=== PATIENT | male | born 1940 | race Caucasian/White ===

== ENCOUNTER 2017-12-25 12:44 | Outpatient (CLI) | payer MEDICARE ==
--- NOTE | 2017-12-25 15:29 | MRI ---
MRI CERVICAL SPINE WITHOUT CONTRAST: Multiplanar, multisequential imaging of cervical spine obtained. HISTORY: Spondylosis with myelopathy. Cervicalgia. FINDINGS: Cervical vertebrae maintain height and alignment. Mild to moderate degenerative changes are noted. There is loss of disk space at C5-6 and C6-7. Anterior osteophytes are prominent at C5-6 and C6-7. At C2-3, no significant abnormality. At C3-4, posterior spondylosis effaces the anterior subarachnoid space. Prominent facet hypertrophy on the left at this level produces left foraminal stenosis. At C4-5, posterior disk bulge with spondylosis efface the anterior subarachnoid space. Facet and unc inate hypertrophy produce bilateral foraminal stenosis, more pronounced on the left due to very promi nent left facet hypertrophy. At C5-6, disk bulge and spondylosis efface the anterior subarachnoid space and abut the cord. There is right foraminal stenosis. Mild left foraminal narrowing. At C6-7, spondylosis effaces the anterior subarachnoid space and abuts the cord. Mild foraminal narr owing due to facet and uncinate hypertrophy on both sides. Cord signal is normal. IMPRESSION: There are cervical spine degenerative changes described. No disk protrusion; however, there are post erior spondylitic changes abutting the cord at C4-5, C5-6, and C6-7 as described above. Foraminal st enosis at several levels as detailed above. POS: [facility]
--- NOTE | 2017-12-25 15:58 | MRI ---
MRI THORACIC SPINE WITHOUT CONTRAST: HISTORY: The patient has shaking episodes. Intervertebral disk displacement. COMPARISON: None. TECHNIQUE: Thoracic spine MRI is performed without intravenous administration. Multisequential, multiplanar ana ging is performed. FINDINGS: Appropriate T1 marrow signal intensity. Vertebral body height is maintained. No fracture. No signi ficant STIR hyperintensity to suggest edema or ligamentous injury. There is appropriate signal intensity in the visualized mediastinum, lung parenchyma, and solid organ s. Thoracic cord has an overall normal size and signal intensity. Conus medullaris terminates at the in ferior aspect of T12. No significant central canal stenosis or significant foraminal narrowing throu ghout the thoracic spine. IMPRESSION: Unremarkable MRI thoracic spine. No significant stenosis. POS: [facility]
== END 2017-12-25 12:45 | disposition home or self-care (01) ==
LOC: TBSIIMAG 12:44
PROVIDERS: ATTEND Neurological Surgery
DX: M51.24 Other intervertebral disc displacement, thoracic region (principal); M47.12 Other spondylosis with myelopathy, cervical region; M99.71 Connective tissue and disc stenosis of intervertebral foramina of cervical region
CPT/HCPCS: 72141; 72146

== ENCOUNTER 2018-05-15 13:45 | Emergency (ER) | payer MEDICARE ==
[2018-05-15 14:16] LABS: #Basophils 0.1 thou/uL (0.0-0.2); #Eosinphils 0.1 thou/uL (0.0-0.7); #Lymphocytes 2.4 thou/uL (1.20-3.40); #Monocytes 0.7 thou/uL (0.11-0.59); #Neutrophils 4.8 thou/uL (1.40-6.50); %Eosinophils 1.2 % (0.0-10.0); %Lymphocytes 30.2 % (21.0-51.0); %Monocytes 8.3 % (0.0-10.0); %Neutrophils 59.2 % (42.0-75.0); Hemoglobin 15.7 g/dL (14.0-18.0); Mean Corpuscular HGB CONC 35.1 g/dL (32.0-36.0); Mean Platelet Volume 8.2 fL (7.4-10.4); Platelet Count 155 thou/uL (130-400); Red Blood Cell (RBC) Count 4.76 mill/uL (4.70-6.10); White Blood Cell (WBC) Count 8.1 thou/uL (4.8-10.8)
--- NOTE | 2018-05-15 14:31 | RAD ---
CHEST ONE VIEW: History: 77-year-old male with history of palpitations. Comparison: None. FINDINGS: Post underlying sternotomy. Numerous surgical clips overlie the left chest medially. Heart size is wi thin normal limits. The lungs are clear. No pneumonia, edema, or pleural effusion. IMPRESSION: No acute intrathoracic disease. POS: OFF
[2018-05-15 14:39] LABS: ALT (SGPT) 18 U/L (8-55); AST (SGOT) 17 U/L (5-34); Albumin 4.4 g/dL (3.4-4.8); Alkaline Phosphatase 49 U/L (40-150); Anion Gap 14 mmol/L (10-20); BUN (Urea Nitrogen) 15 mg/dL (8.4-25.7); Bilirubin, Total 0.9 mg/dL (0.2-1.2); CK (CPK) 58 U/L (30-200); Calc. Creatinine Clearance 0 mL/min (70-130); Calcium 9.5 mg/dL (7.8-10.44); Carbon Dioxide 22 mmol/L (23-31); Chloride 108 mmol/L (98-107); Estimated GFR-MDRD 68; Globulin 2.7 g/dL (2.4-3.5); Glucose 107 mg/dL (83-110); Potassium 4.6 mmol/L (3.5-5.1); Protein, Total 7.1 g/dL (5.8-8.1); Sodium 139 mmol/L (136-145)
[2018-05-15 14:43] LABS: CKMB 0.9 ng/mL (0-6.6); Troponin I Less than 0.010 ng/mL (< 0.028)
== END 2018-05-15 19:25 | disposition home or self-care (01) ==
LOC: ERS 13:45
DX: R00.2 Palpitations (principal); Z79.82 Long term (current) use of aspirin
CPT/HCPCS: 36415; 71045; 80053; 82553; 83880; 84484; 85025; 93005

== ENCOUNTER 2018-06-26 14:01 | Outpatient (CLI) | payer MEDICARE ==
[2018-06-26 14:27] LABS: #Basophils 0.1 thou/uL (0.0-0.2); #Eosinphils 0.1 thou/uL (0.0-0.7); #Lymphocytes 2.5 thou/uL (1.20-3.40); #Monocytes 0.9 thou/uL (0.11-0.59); #Neutrophils 4.1 thou/uL (1.40-6.50); %Basophils 0.8 % (0.0-1.0); %Eosinophils 1.6 % (0.0-10.0); %Lymphocytes 32.5 % (21.0-51.0); %Monocytes 11.2 % (0.0-10.0); %Neutrophils 53.9 % (42.0-75.0); Hemoglobin 15.1 g/dL (14.0-18.0); Mean Corpuscular HGB CONC 34.9 g/dL (32.0-36.0); Mean Corpuscular Hemoglobin 33.3 pg (27.0-31.0); Mean Corpuscular Volume 95.2 fL (78.0-98.0); Mean Platelet Volume 8.8 fL (7.4-10.4); Platelet Count 165 thou/uL (130-400); RBC Distribution Width 13.2 % (11.5-14.5); Red Blood Cell (RBC) Count 4.53 mill/uL (4.70-6.10); White Blood Cell (WBC) Count 7.7 thou/uL (4.8-10.8)
[2018-06-26 14:33] LABS: INR-International Normal Ratio 1.1; PTT 26.5 SEC (22.9-36.1); Prothrombin Time 13.9 SEC (12.0-14.7)
[2018-06-26 14:52] LABS: ALT (SGPT) 21 U/L (8-55); AST (SGOT) 19 U/L (5-34); Albumin 4.4 g/dL (3.4-4.8); Alkaline Phosphatase 47 U/L (40-150); Anion Gap 13 mmol/L (10-20); BUN (Urea Nitrogen) 20 mg/dL (8.4-25.7); Bilirubin, Total 0.5 mg/dL (0.2-1.2); Calc. Creatinine Clearance 0 mL/min (70-130); Calcium 9.2 mg/dL (7.8-10.44); Carbon Dioxide 24 mmol/L (23-31); Chloride 108 mmol/L (98-107); Estimated GFR-MDRD 68; Globulin 2.9 g/dL (2.4-3.5); Glucose 104 mg/dL (83-110); Potassium 4.6 mmol/L (3.5-5.1); Protein, Total 7.3 g/dL (5.8-8.1); Sodium 140 mmol/L (136-145)
== END 2018-06-26 14:02 | disposition home or self-care (01) ==
LOC: LABBT 14:01
PROVIDERS: ATTEND Internal Medicine Cardiovascular Disease
DX: Z01.812 Encounter for preprocedural laboratory examination (principal); R94.39 Abnormal result of other cardiovascular function study
CPT/HCPCS: 80053; 85025; 85610; 85730

== ENCOUNTER 2018-06-29 05:49 | Observation (INO) | payer MEDICARE ==
[2018-06-29] MEDS ORDERED: Heparin 10,000 UNITS/1 ML VIAL ONE (07:37)
[2018-06-29] MEDS ORDERED: Lidocaine 1% (PF) 30 ML VIAL ONE (07:42)
[2018-06-29 08:19] LABS: Cardiac Risk 5.8 (Less than 4.5)
[2018-06-29] MEDS ORDERED: Midazolam HCl 2 mg/2 ml Vial ONE (08:57)
[2018-06-29] MEDS ORDERED: Fentanyl 100 MCG/2 ML VIAL ONE (08:57)
[2018-06-29] MEDS ORDERED: Protamine Sulfate 50 MG/5 ML VIAL ONE (09:30)
[2018-06-29] MEDS ORDERED: Acetaminophen/Codeine 30-300mg Tablet PO PRN ×2 (10:05)
[2018-06-29] MEDS ORDERED: traMADol HCl 50 MG TAB PO PRN (10:05)
[2018-06-29] MEDS ORDERED: Nitroglycerin 0.4 MG TAB (25 Tab Bottle) SL PRN (10:05)
[2018-06-29] MEDS ORDERED: Sodium Chloride 0.9% 200 ML IV SCH (10:15)
[2018-06-29] MEDS: Sodium Chloride 0.9% 1,000 ML IV SCH ×2 (13:44→14:33)
[2018-06-29 14:20] VITALS: BMI 26.8
[2018-06-29] MEDS ORDERED: Iopamidol 370 76% 100 ML VIAL ONE (15:27)
[2018-06-29] MEDS ORDERED: Iopamidol 370 76% 50 ML VIAL FS ONE (15:27)
[2018-06-29] MEDS: Ubidecarenone 50 MG CAP PO SCH (20:14)
[2018-06-29] MEDS: Metoprolol Tartrate 25 MG TAB PO SCH ×2 (20:14→20:24)
[2018-06-29] MEDS ORDERED: Rosuvastatin 20 MG TAB PO SCH (21:00)
[2018-06-30] MEDS ORDERED: Metoprolol Tartrate 25 MG TAB PO SCH (09:00)
[2018-06-30] MEDS ORDERED: Aspirin 81 mg Enteric Coated Tablet PO SCH (09:00)
[2018-06-30] MEDS: Ubidecarenone 50 MG CAP PO SCH (10:38)
[2018-06-30 16:12] VITALS: BP 117/57; TEMP 98.2
--- NOTE | 2018-07-01 05:17 | DIS ---
DISCHARGE DIAGNOSES: 1. Palpitations with idioventricular rhythm - 110 per minute and supraventricular tachycardia 120 per minute, both for 2 seconds on the monitor. 2. Status post coronary artery bypass graft x2 with both bypass grafts patent. 3. Progression of other disease as described below. 4. Bradycardia, limiting the dosage of beta linda. 5. Hypercholesterolemia with LDL of 102 with rosuvastatin 20 mg started at this time. 6. Mild hypertension. DISCHARGE MEDICATIONS: Aspirin 81 daily, CoQ10 of 200 mg daily, rosuvastatin 20 mg daily, isosorbide mononitrate 30 mg q.a.m., metoprolol succinate 25 mg q.a.m. DISCHARGE DISPOSITION: The patient will be seen in 4-6 weeks for followup with complete metabolic profile and fasting lipid profile. HOSPITAL COURSE: Mr. Tillman had noticed that he developed exertional palpitations. He underwent Holter monitor by his rpg programmer analyst in [place] for 3 days and the only arrhythmias found were episode of idioventricular rhythm for 3 seconds and supraventricular tachycardia at 120 per minute for 2 seconds. He underwent cardiac PET scan, which revealed proximal to distal anterior, proximal septal, proximal lateral wall ischemia. He underwent catheterization which revealed normal left ventricular function with ejection fraction of 50%-55%. There was an 80% left main. The LAD had a 90% followed by 80% proximal stenosis. 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 Septals filled from the right coronary artery. Circumflex had a 60% proximal stenosis, 70% and 50% distal stenosis and 80% stenosis in the first obtuse marginal. The right coronary artery had a 60% and 50% mid stenosis, 80% distal stenosis, 60% right posterior descending and 90% and then total occlusion of the right posterolateral. Bypass grafts revealed patent DANIEL to the LAD, although the LAD was small. There was patent saphenous vein graft (probably to) right posterolateral with a 50% mid graft stenosis. It was felt best to monitor him overnight. He was started on metoprolol 25 b.i.d. However, the dose had to be reduced due to heart rates in the high 40s to low 50s. He was also placed on long-acting nitrates. His cholesterol is elevated, not having been on any medications. He had an unknown type of reaction with atorvastatin, but stated that he did take rosuvastatin in the past without problems and so he was placed on 20 mg daily of that. MTDD
== END 2018-06-30 18:24 | disposition home or self-care (01) ==
LOC: CCL 05:49 → 2SW 14:10
PROVIDERS: ADMIT Internal Medicine Cardiovascular Disease; ATTEND Internal Medicine Cardiovascular Disease
PROC: B2111ZZ Fluoroscopy of Multiple Coronary Arteries using Low Osmolar Contrast (ICD-10-PCS; principal; 2018-06-29)
PROC: B2181ZZ Fluoroscopy of Left Internal Mammary Bypass Graft using Low Osmolar Contrast (ICD-10-PCS; 2018-06-29)
PROC: B21F1ZZ Fluoroscopy of Other Bypass Graft using Low Osmolar Contrast (ICD-10-PCS; 2018-06-29)
PROC: 4A023N7 Measurement of Cardiac Sampling and Pressure, Left Heart, Percutaneous Approach (ICD-10-PCS; 2018-06-29)
DX: I25.10 Atherosclerotic heart disease of native coronary artery without angina pectoris (principal); I47.1 Supraventricular tachycardia; E78.00 Pure hypercholesterolemia, unspecified; I10 Essential (primary) hypertension; I49.3 Ventricular premature depolarization; I47.2 Ventricular tachycardia; Z95.1 Presence of aortocoronary bypass graft; Z79.82 Long term (current) use of aspirin; Z79.899 Other long term (current) drug therapy; Z88.5 Allergy status to narcotic agent; Z88.8 Allergy status to other drugs, medicaments and biological substances
CPT/HCPCS: 80061; 85347; 93459; G0378; 99152; 99153; J1644; J2001; J2250; J2720; J3010

== ENCOUNTER 2018-11-16 07:08 | Outpatient (CLI) | payer MEDICARE ==
[2018-11-16 07:51] LABS: ALT (SGPT) 18 U/L (8-55); AST (SGOT) 17 U/L (5-34); Albumin 4.3 g/dL (3.4-4.8); Alkaline Phosphatase 63 U/L (40-150); Anion Gap 13 mmol/L (10-20); BUN (Urea Nitrogen) 17 mg/dL (8.4-25.7); Bilirubin, Total 0.7 mg/dL (0.2-1.2); Calc. Creatinine Clearance 0 mL/min (70-130); Calcium 9.4 mg/dL (7.8-10.44); Carbon Dioxide 24 mmol/L (23-31); Cardiac Risk 4.6 (Less than 4.5); Chloride 109 mmol/L (98-107); Cholesterol 124 mg/dl (< 200 Desired); Estimated GFR-MDRD 85; Globulin 2.7 g/dL (2.4-3.5); Glucose 108 mg/dL (83-110); HDL Cholesterol 27 mg/dL (>60 Neg Risk); LDL Cholesterol, Calculated 62 mg/dL; Potassium 4.3 mmol/L (3.5-5.1); Sodium 142 mmol/L (136-145); Triglycerides 177 mg/dL (Less than 150)
== END 2018-11-16 07:09 | disposition home or self-care (01) ==
LOC: SCSLAB 07:08
PROVIDERS: ATTEND Internal Medicine Cardiovascular Disease
DX: E78.00 Pure hypercholesterolemia, unspecified (principal)
CPT/HCPCS: 36415; 80053; 80061

== ENCOUNTER 2025-06-02 05:52 | Day surgery (SDC) | payer MEDICARE ==
[2025-06-01 09:55] VITALS: BMI 27.9
[2025-06-02] MEDS ORDERED: Lidocaine 1% PF 5 ML VIAL ONE (07:39)
[2025-06-02] MEDS ORDERED: PROPOFOL 40 ML ONE (07:39)
[2025-06-02] MEDS ORDERED: Glycopyrrolate 0.2 MG/ML 5 ML SYRINGE ONE (07:45)
[2025-06-02] MEDS ORDERED: PROPOFOL 20 ML ONE (08:08)
[2025-06-02] MEDS ORDERED: PHENYLEPHRINE-NS 100 MCG/ML 10 ML SYRINGE ONE (08:15)
== END 2025-06-02 10:00 | disposition home or self-care (01) ==
LOC: SDC 05:52
PROVIDERS: ATTEND Internal Medicine
PROC: 0DB68ZX Excision of Stomach, Via Natural or Artificial Opening Endoscopic, Diagnostic (ICD-10-PCS; principal; 2025-06-02)
PROC: 0D5H8ZZ Destruction of Cecum, Via Natural or Artificial Opening Endoscopic (ICD-10-PCS; 2025-06-02)
PROC: 0D5L8ZZ Destruction of Transverse Colon, Via Natural or Artificial Opening Endoscopic (ICD-10-PCS; 2025-06-02)
DX: Z12.11 Encounter for screening for malignant neoplasm of colon (principal); K29.50 Unspecified chronic gastritis without bleeding; D12.0 Benign neoplasm of cecum; D12.3 Benign neoplasm of transverse colon; K64.8 Other hemorrhoids; K57.30 Diverticulosis of large intestine without perforation or abscess without bleeding; Z88.8 Allergy status to other drugs, medicaments and biological substances; Z88.5 Allergy status to narcotic agent
CPT/HCPCS: 43239; 45385; J2704; 88305; 88342